=== PATIENT | female | born 1990 | race Hispanic/Latino ===

== ENCOUNTER 2018-01-23 07:03 | Outpatient (CLI) | payer OTHER | END 2018-01-23 07:04 | disposition home or self-care (01) | LOC: BICULT 07:03 | PROVIDERS: ATTEND Family Medicine | DX: R10.11 Right upper quadrant pain (principal); N13.30 Unspecified hydronephrosis | CPT/HCPCS: 76700 ==

== ENCOUNTER 2018-02-27 13:56 | Outpatient (CLI) | payer OTHER ==
--- NOTE | 2018-02-27 16:21 | CT ---
CT OF THE ABDOMEN AND PELVIS WITH AND WITHOUT IV CONTRAST 02/27/18 INDICATION: History of hydronephrosis and epigastric abdominal pain. CONTRAST: 70 mL of Isovue 370. FINDINGS: The lung bases are clear. There is mild to moderate right sided hydronephrosis and hydroureter. No definite renal or ureteral c alculus is demonstrated. The distal aspect of the right ureter just proximal to the right UVJ cannot be definitely evaluated as there is poor segmental opacification of the right ureter at this level an d limited visualization of the right ureter due to free fluid and enhancement of periureteral vessels . The visualized adnexa are unremarkable appearing. There is an extrarenal pelvis involving the left kidney. No gross urothelial lesion is evident involv ing the segment of unopacified left ureter. Again the distal left ureter is not well seen just proxim al to the left UVJ. No focal solid renal lesion is demonstrated. No focal hepatic lesion, spleen, or pancreatic lesion is identified. Adrenal glands are normal appear ing. No free fluid or enlarged lymph nodes are evident within the abdomen. There is a mild amount of retained stool within the colon. There is a normal appendix in the right lo wer quadrant. The small bowel is of normal caliber. No definite acute osseous abnormality is demonstr ated. IMPRESSION: 1. Mild to moderate right sided hydronephrosis and hydroureter. The distal segment of the right ureter is not well seen and not well opacified on the delayed phase images. A distal obstructing proc ess is still of concern and is poorly interrogated on this current examination. Would recommend consi deration for cystoscopy and retrograde urethrogram to exclude the presence of soft tissue mass of the right distal ureter. 2. Nonvisualization of the final 2 cm segment of the distal left ureter; however, there is no le ft sided hydronephrosis. There is a left extrarenal pelvis. 3. No solid renal mass demonstrated. No lymphadenopathy seen. 4. Nonspecific mild free fluid in the pelvis. 5. Other findings as above. POS: LISA
== END 2018-02-27 13:57 | disposition home or self-care (01) ==
LOC: BICCT 13:56
PROVIDERS: ATTEND Urology
DX: N13.30 Unspecified hydronephrosis (principal); N13.4 Hydroureter; K59.00 Constipation, unspecified
CPT/HCPCS: 74178

== ENCOUNTER 2018-07-22 14:30 | Outpatient (CLI) | payer OTHER ==
--- NOTE | 2018-07-22 15:53 | ULT ---
BILATERAL RENAL ULTRASOUND: HISTORY: Hydronephrosis. FINDINGS: The right kidney measures 10.4 cm in length and the left kidney measures 10.9 cm in length. No mass is seen on either side. There is mild to moderate right-sided hydronephrosis similar to that seen on exam of 01/23/2018. The urinary bladder wall imaged 201 cc on the prevoid images and 8 cc on the post void exam. IMPRESSION: Mild to moderate right-sided hydronephrosis. POS: C
== END 2018-07-22 14:31 | disposition home or self-care (01) ==
LOC: BICULT 14:30
PROVIDERS: ATTEND Urology
DX: N13.30 Unspecified hydronephrosis (principal)
CPT/HCPCS: 76770

== ENCOUNTER 2018-11-26 12:17 | Outpatient (CLI) | payer OTHER ==
--- NOTE | 2018-11-26 12:59 | ULT ---
Bilateral renal ultrasound CLINICAL INDICATION: Renal Insufficiency COMPARISON: 07/22/2018 FINDINGS: Right kidney: No solid mass, or hydronephrosis. Left kidney: No solid mass, or hydronephrosis. Urinary bladder: Normal IMPRESSION: Unremarkable exam.
== END 2018-11-26 12:18 | disposition home or self-care (01) ==
LOC: BICULT 12:17
PROVIDERS: ATTEND Urology
DX: N13.30 Unspecified hydronephrosis (principal)
CPT/HCPCS: 76770

== ENCOUNTER 2020-05-22 12:30 | Inpatient (IN) | payer OTHER ==
[2020-05-22 13:18] VITALS: BMI 30.6
[2020-05-22] MEDS ORDERED: HYDROcodone/Acetaminophen 5/325 mg Tablet PO PRN ×4 (14:12→19:10)
[2020-05-22] MEDS ORDERED: Lactated Ringer's 1,000 ML IV PRN (14:12)
[2020-05-22] MEDS ORDERED: Acetaminophen 500 MG TAB PO PRN (14:12)
[2020-05-22] MEDS ORDERED: Promethazine HCl 25 MG/ML VIAL IM PRN (14:12)
[2020-05-22] MEDS ORDERED: NS / Oxytocin 40 units/1000ml 1,000 ML IV PRN (14:12)
[2020-05-22] MEDS ORDERED: Lidocaine 1% (PF) 30 ML VIAL SC PRN (14:12)
[2020-05-22] MEDS ORDERED: Ondansetron PF 4 MG/2 ML Vial IVP PRN (14:12)
[2020-05-22] MEDS ORDERED: hydrALAZINE 20 MG/ML VIAL SLOW IVP PRN ×2 (14:12→19:10)
[2020-05-22] MEDS ORDERED: Ibuprofen 800 MG TAB PO PRN (14:12)
--- NOTE | 2020-05-22 14:18 | PDOC.LDHP ---
Labor and Delivery H&P Chief complaint: loss of fluid HPI: Water broke this morning. Current gestational age (weeks): 39 (and 6 days) Due date: 05/23/20 Dating criteria: last menstrual period Grav: 3 Para: 1 OB History Details: 09/28/2016, , 8#6oz Current complications: none Abnormal US findings: No Current medications: pre-waqar vitamins Previous surgical history: other (Ureter Stent 2018) Allergies/Adverse Reactions: Allergies Allergy/AdvReac Type Severity Reaction Status Date / Time No Known Drug Allergies Allergy Verified 08/08/19 18:01 Social history: none - Physical Exam Vital signs reviewed and normal: yes Lungs: nonlabored breathing Abdomen: gravid Extremeties: no edema FHT: category 2 - Vaginal Exam cm dilated: 4 Effacement: 75% Station: -1 - OB Labs Blood type: B RH: negative Antibody Screen: negative HIV: negative RPR: negative HEPSAg: negative 1 hour GCT: negative GBS: negative Urine drug screen: negative Rubella: immune - Assessment L&D Assessment: term rupture in membranes 39 weeks gestation SROM - Plan Plan: admit to L&D, labor augmentation if indicated, informed consent obtained -: Low intervention protocols.
[2020-05-22 14:53] LABS: Mean Corpuscular HGB CONC 34.5 g/dL (32.0-36.0); Mean Corpuscular Hemoglobin 29.4 pg (27.0-31.0); Mean Corpuscular Volume 85.2 fL (78.0-98.0); Mean Platelet Volume 7.9 fL (7.4-10.4); Platelet Count 239 thou/uL (130-400); RBC Distribution Width 11.8 % (11.5-14.5); Red Blood Cell (RBC) Count 4.09 mill/uL (4.20-5.40); White Blood Cell (WBC) Count 10.7 thou/uL (4.8-10.8)
[2020-05-22 15:31] LABS: Syphilis Antibody Nonreactive (Nonreactive); Syphilis Antibody Index 0.03 S/CO (<1.00 Non-Reactive)
[2020-05-22 15:49] LABS: HBSAg Index 0.19 S/CO (0-0.99); Hep B Surf Ag Non-Reactive S/CO (NonReactive)
--- NOTE | 2020-05-22 17:10 | PDOC.BPN ---
- Brief Progress Note Encounter Date: 05/22/20 Encounter Time: 17:[address] Ham while I was en route to the hospital. i will continue to manage for post .
--- NOTE | 2020-05-22 17:15 | PDOC.BPN ---
- Brief Progress Note VAGINAL DELIVERY Present and assisted with . No complications. Male vigorous, at approx 1653. Spont placenta out at 1658. I was standy-by/OBGYN collections technician for Light. See dictation.
--- NOTE | 2020-05-22 17:40 | DN ---
DATE OF PROCEDURE: 05/22/2020 TIME OF DELIVERY: 1650. SPONTANEOUS VAGINAL DELIVERY DELIVERY PROVIDER: Mika Ham [id number] This is a patient of Jojonathon Reza and I was asked to go to R 8 as a standby as Jo Reza was en route to Labor and Delivery, but the patient was having eminent . When I arrived, she was complete, complete +5 in . I quickly introduced myself and then prepped and draped the area. We allowed for perineal stretch by the head and then she delivered at around 1653, a vigorous male with no nuchal cord. Baby was placed on the abdomen and a 45-second delayed cord clamp was then placed. Placenta delivered at 1658 in a Schultze mechanism and it was intact. EBL total was about 100 mL. Nursery staff was present, baby was vigorous at . Jo Reza arrived just before placental delivery. I inspected the vaginal area in the perineum. There was no lacerations noted. We do not need to send a cord gas or the placenta as there was no evidence of abnormal findings. FINDINGS: 1. Vigorous male. 2. Three-vessel cord. 3. Intact placenta delivery by Schultze mechanism about 3 minutes after the child was born. 4. No complications noted with delivery. It is important to note that prior to placental delivery, I did perform in- and out catheterization of the bladder for about 200 mL of urine. Job ID: [id number] [facility]
[2020-05-22] MEDS ORDERED: Misoprostol 200 MCG TAB ONE ×6 (17:42→17:51)
[2020-05-22] MEDS ORDERED: Methylergonovine 0.2 MG TAB ONE ×2 (17:53)
[2020-05-22] MEDS ORDERED: NS w/ Oxytocin 30 units 500 ML IV PRN (18:14)
[2020-05-22] MEDS ORDERED: Methylergonovine 0.2 MG/ML VIAL IM SCH (18:15)
[2020-05-22] MEDS ORDERED: NS w/ Oxytocin 30 units 500 ML IVPB SCH (18:15)
[2020-05-22] MEDS ORDERED: Misoprostol 200 MCG TAB PR SCH (18:15)
[2020-05-22] MEDS ORDERED: Benzocaine-Menthol 82.5 ML CAN TOP PRN (19:10)
[2020-05-22] MEDS ORDERED: Milk Of Magnesia 30 ML UDCUP PO PRN (19:10)
[2020-05-22] MEDS ORDERED: Lanolin Ointment 7 GM TUBE TOP PRN (19:10)
[2020-05-22] MEDS ORDERED: Adacel (T-DAP) 0.5 ML SYRINGE IM ONE (19:10)
[2020-05-22] MEDS ORDERED: NS / Oxytocin 40 units/1000ml 1,000 ML IV SCH (19:10)
[2020-05-22] MEDS ORDERED: Bisacodyl 10 MG SUPP PR PRN (19:10)
[2020-05-22] MEDS ORDERED: Methylergonovine 0.2 MG/ML VIAL IM PRN (19:10)
[2020-05-22] MEDS: Docusate Calcium (SURFAK) 240 MG CAP PO SCH (21:26)
[2020-05-22] MEDS: Ibuprofen 800 MG TAB PO SCH (21:26)
[2020-05-22 22:41] LABS: SARS-CoV-2 MS2 Positive; SARS-CoV-2 N Gene Negative; SARS-CoV-2 S Gene Negative; SARS-CoV-2 by NAA Not Detected (NotDetected); SARS-CoV-2 orf1ab Negative
[2020-05-23] MEDS: Ibuprofen 800 MG TAB PO SCH ×2 (05:22→14:54)
[2020-05-23] MEDS: Docusate Calcium (SURFAK) 240 MG CAP PO SCH (08:37)
[2020-05-23] MEDS: Ferrous Sulfate 325 MG TAB PO SCH ×2 (08:38→15:52)
[2020-05-23] MEDS ORDERED: Prenatal Vitamin 1 TAB PO SCH (09:00)
[2020-05-23 17:56] VITALS: BP 116/68; TEMP 98
== END 2020-05-23 20:00 | disposition home or self-care (01) | DRG 807 ==
LOC: L&D/OP 12:30 → L&D-LIB 14:12 → 3SW 19:41
PROVIDERS: ADMIT Student in an Organized Health Care Education/Training Program; ATTEND Student in an Organized Health Care Education/Training Program
PROC: 10E0XZZ Delivery of Products of Conception, External Approach (ICD-10-PCS; principal; 2020-05-22)
DX: O80 Encounter for full-term uncomplicated delivery (principal); Z37.0 Single live birth; Z3A.39 39 weeks gestation of pregnancy; Z98.890 Other specified postprocedural states; Z20.822 Contact with and (suspected) exposure to COVID-19
CPT/HCPCS: 36415; 51701; 85027; 86780; 86850; 86900; 86901; 87340; 87635; 99285; J2001; J2210; U0003